=== PATIENT | male | born 1940 | race Caucasian/White ===

== ENCOUNTER 2017-01-02 04:03 | Inpatient (IN) | payer MEDICARE, BC ==
[~2017-01-02] VITALS: Ht 165.1 cm; Wt 65.2 kg
[2017-01-02] VITALS (13 sets, daily range): BP systolic 106–149; BP diastolic 60–87; PULSE 56–85; RESP 18; TEMP 97.1; Ht 165.1 cm; Wt 65.2 kg
[~2017-01-02 04:03] MED LIST: AMLO-218 PO; CALC667C4 PO; CITA-98 PO; LOSA25TA5 PO; METO50TA16 PO; NEPH PO; RANI150C11 PO; REPA2TAB6 PO; SITA50TA2 PO; SMV40T PO
[2017-01-02] MEDS ORDERED: ONDANSETRON 4 MG INJ IV STA (04:25)
[2017-01-02] MEDS ORDERED: FAMOTIDINE 20 MG INJ IV STA (04:25)
[2017-01-02 05:00] LABS: ADD SCAN DIFF NO
[2017-01-02 05:08] LABS: BASOPHILS % 0.3 % (0.0-2.0); EOSINOPHILS # 0.1 10^3/ul (0.0-0.5); EOSINOPHILS % 0.9 % (0.0-7.0); HEMATOCRIT 35.5 % (42.0-52.0); HEMOGLOBIN 11.4 g/dl (14.0-18.0); LYMPHOCYTES # 1.8 10^3/ul (0.8-2.9); LYMPHOCYTES % 15.1 % (15.0-51.0); MEAN CORPUSCULAR HEMOGLOBIN 30.6 pg (29.0-33.0); MEAN CORPUSCULAR HGB CONC 32.1 g/dl (32.0-37.0); MEAN CORPUSCULAR VOLUME 95.2 fl (82.0-101.0); MEAN PLATELET VOLUME 10.4 fl (7.4-10.4); MONOCYTE # 0.9 10^3/ul (0.3-0.9); MONOCYTES % 7.8 % (0.0-11.0); NEUTROPHILS % 75.3 % (39.0-77.0); PLATELET COUNT 210 10^3/UL (140-415); RED BLOOD COUNT 3.73 10^6/ul (4.70-6.10); RED CELL DISTRIBUTION WIDTH 15.8 % (11.5-14.5)
[2017-01-02 05:16] LABS: ALBUMIN 4.3 g/dl (3.3-4.9); ALBUMIN/GLOBULIN RATIO 1.16; CALCIUM 9.6 mg/dl (8.4-10.2); CREATININE 7.79 mg/dl (0.61-1.24); POTASSIUM 5.8 mmol/L (3.5-5.1)
[2017-01-02] MEDS ORDERED: CALCIUM GLUCONATE 10% 1 GM in SOD CHLORIDE 0.9% 100 ML IVPB ONE (06:00)
[2017-01-02] MEDS ORDERED: NA POLYST SULFON 15 GM/60 ML BTL PO ONE (06:00)
[2017-01-02] MEDS ORDERED: IODIXANOL LOCM 100 ML BTL ONE (06:06)
[2017-01-02] MEDS ORDERED: SOD CHLORIDE 0.9% 100 ML ONE (06:06)
[2017-01-02] MEDS ORDERED: ONDANSETRON 4 MG INJ IV PRN ×2 (06:30→10:00)
[2017-01-02] MEDS ORDERED: ACETAMINOPHEN 325 MG TAB PO PRN (06:30)
--- NOTE | 2017-01-02 06:56 | ERA ---
ER Documentation Chief Complaint Date/Time DATE: 01/02/17 TIME: 06:52 Chief Complaint N/V/D that started tonight HPI This is a 76-year-old male with a history of hypertension, diabetes, coronary artery disease and end-stage renal disease who is on dialysis Tuesday, Tuesday and Tuesday who presents to the emergency room for evaluation of nausea, vomiting , diarrhea and abdominal cramping which started approximately 4 hours prior to arrival ROS All systems reviewed and are negative except as per history of present illness. Medications Home Meds Active Scripts Metoprolol Succinate* (Toprol XL*) 50 Mg Tab.er.24h, 50 MG PO BID for 30 Days, # 60 5 Refills Prov:RADHA BAKER MD 09/15/16 Repaglinide* (Prandin*) 2 Mg Tablet, 2 MG PO AC MEALS for 30 Days, #90 TAB 5 Refills Prov:RADHA BAKER MD 09/15/16 Reported Medications Losartan Potassium* (Losartan Potassium*) 25 Mg Tablet, 25 MG PO BID, TAB 03/06/16 Calcium Acetate (Phoslo) 667 Mg Capsule, 667 MG PO TID, 0 Refills 08/07/10 Multivit/Ca Carb/B Cmplx/Fa* (Germania-Filomena*) 1 Tab Tab, 1 TAB PO DAILY, 0 Refills 08/07/10 Amlodipine Besylate* (Norvasc*) 10 Mg Tablet, 10 MG PO DAILY, 0 Refills 08/07/10 Simvastatin (Simvastatin) 40 Mg Tablet, 40 MG PO HS, 0 Refills 08/07/10 Citalopram Hydrobromide* (Celexa*) 20 Mg Tablet, 20 MG PO DAILY, 0 Refills 08/07/10 Ranitidine Hcl (Ranitidine Hcl) 150 Mg Capsule, 150 MG PO BID, 0 Refills 08/07/10 Sitagliptin* (Januvia*) 50 Mg Tablet, 25 MG PO DAILY, 0 Refills 04/06/10 Allergies Allergies: Coded Allergies: No Known Drug Allergy (Verified Allergy, Unknown, 03/06/16) PMhx/Soc History of Surgery: Yes ([facility] WEEKS) Anesthesia Reaction: No Hx Neurological Disorder: No Hx Respiratory Disorders: No Hx Cardiac Disorders: Yes (HTN, ID JUL 2016) Hx Psychiatric Problems: No Hx Miscellaneous Medical Probl: Yes (HTN, DM, retinopathy, PVD, BPH, ESRD) Hx Alcohol Use: Yes Hx Substance Use: No Hx Tobacco Use: No Smoking Status: Never smoker Physical Exam Vitals Vital Signs Date Time Temp Pulse Resp B/P Pulse Ox O2 Delivery O2 Flow Rate FiO2 01/02/17 04:20 97.1 56 18 153/72 100 Room Air 01/02/17 04:07 97.1 54 18 131/62 99 Physical Exam INITIAL VITAL SIGNS: Reviewed by me GENERAL: The patient is well developed and appropriate for usual state of health in no apparent distress HEENT: Pupils equal, round, and reactive to light. EOMI. There is no scleral icterus. NECK: C-spine is soft and supple, there is no meningismus. There is no cervical lymphadenopathy. LUNGS: Clear to auscultation bilaterally. There are no rales, wheezes or rhonchi. HEART: Regular rate and rhythm, no murmurs, clicks, rubs or gallops. ABDOMEN: Soft, non-tender, non-distended. There are bowel sounds in all four quadrants. No rebound or guarding. EXTREMITIES: Bilateral BKAs, there is no peripheral cyanosis or edema. No focal swelling or erythema. NEUROLOGICAL: The patient moves all four extremities with 5/5 strength. Cranial nerves II - XII are intact. Normal gait. Alert and oriented SKIN: There is no apparent rash or petechiae. HEME/LYMPHATIC: There is no evidence of excessive bruising or lymphedema. PSYCHIATRIC: The patient does not appear anxious or depressed. Result Diagram: 01/02/17 0430 01/02/17 0430 Results 24 hrs Laboratory Tests Test 01/02/17 04:30 01/02/17 05:59 White Blood Count 12.010^3/ul Red Blood Count 3.7310^6/ul Hemoglobin 11.4g/dl Hematocrit 35.5% Mean Corpuscular Volume 95.2fl Mean Corpuscular Hemoglobin 30.6pg Mean Corpuscular Hemoglobin Concent 32.1g/dl Red Cell Distribution Width 15.8% Platelet Count 41253^3/UL Mean Platelet Volume 10.4fl Neutrophils % 75.3% Lymphocytes % 15.1% Monocytes % 7.8% Eosinophils % 0.9% Basophils % 0.3% Nucleated Red Blood Cells % 0.0/100WBC Neutrophils # 9.010^3/ul Lymphocytes # 1.810^3/ul Monocytes # 0.910^3/ul Eosinophils # 0.110^3/ul Basophils # 0.010^3/ul Nucleated Red Blood Cells # 0.010^3/ul Sodium Level 138mmol/L Potassium Level 5.8mmol/L Chloride Level 104mmol/L Carbon Dioxide Level 22mmol/L Anion Gap 18 Blood Urea Nitrogen 56mg/dl Creatinine 7.79mg/dl Glucose Level 187mg/dl Calcium Level 9.6mg/dl Total Bilirubin 0.0mg/dl Direct Bilirubin 0.00mg/dl Indirect Bilirubin 0.0mg/dl Aspartate Amino Transf (AST/SGOT) 32IU/L Alanine Aminotransferase (ALT/SGPT) 27IU/L Alkaline Phosphatase 106IU/L Total Protein 8.0g/dl Albumin 4.3g/dl Globulin 3.70g/dl Albumin/Globulin Ratio 1.16 Lipase 2412U/L Lactic Acid Level 0.6mmol/L Troponin I 0.013ng/ml Current Medications Medications (Trade) Dose Ordered Sig/Rachel Route PRN Reason Start Time Stop Time Status Last Admin Dose Admin Ondansetron HCl (Zofran Inj) 4 mg ONCE STAT IV 01/02/17 04:25 01/02/17 04:27 DC 01/02/17 04:36 Famotidine 20 mg 20 mg ONCE STAT IV 01/02/17 04:25 01/02/17 04:27 DC 01/02/17 04:36 Calcium Gluconate/ Sodium Chloride (Ca Gluc/NS) 110 ml @ 110 mls/hr ONCE ONCE IVPB 01/02/17 06:00 01/02/17 06:59 DC 01/02/17 05:45 Sodium Polystyrene Sulfonate (Kayexalate) 30 gm ONCE ONCE PO 01/02/17 06:00 01/02/17 06:01 DC 01/02/17 05:45 IV Flush 10 ml 10 ml STK-MED ONCE .ROUTE 01/02/17 06:06 01/02/17 06:07 DC 01/02/17 06:55 Sodium Chloride (NS) 100 ml @ ud STK-MED ONCE .ROUTE 01/02/17 06:06 01/02/17 06:07 DC 01/02/17 06:55 Iodixanol (Visipaque Locm) 100 ml STK-MED ONCE .ROUTE 01/02/17 06:06 01/02/17 06:07 DC 01/02/17 06:55 Ondansetron HCl (Zofran Inj) 4 mg ER BRIDGE PRN IV NAUSEA AND/OR VOMITING 01/02/17 06:30 01/03/17 06:29 Acetaminophen (Tylenol Tab) 650 mg ER BRIDGE PRN PO MILD PAIN/FEVER 01/02/17 06:30 01/03/17 06:29 Procedures/MDM Chest X-ray 1V Interpreted by me: Soft Tissue: No acute abnormalities Bones: No acute abnormalities Mediastinum/Cardiac Silhouette/Lungs: [No acute abnormalities] EKG: Rate/Rhythm: [Normal Sinus Rhythm] QRS, ST, T-waves: [No changes consistent w/ acute ischemia] Impression: [No evidence of ischemia or arrhythmia] CT abdomen pelvis with IV contrast: Pending This 76-year-old male presents to the emergency room for evaluation of abdominal cramping, nausea, vomiting and diarrhea. When I evaluated this patient I did note that he was alert and oriented to person place and time, he was hemodynamically stable and in no respiratory distress. Lab work was obtained which does show an elevation in his lipase. His patient also has an elevation of his potassium at a level of 5.8. Patient was given calcium gluconate, Kayexalate in the emergency room. He has no EKG changes consistent with hyperkalemia. I have contacted his primary care physician, Dr. Graves who states this patient has multiple comorbidities and he agrees to the patient being admitted. He would like a CT of the abdomen and pelvis due to the fact that this patient has had a previous history of mesenteric ischemia. CT of abdomen pelvis is pending at this time. This patient is nontoxic-appearing and will be admitted to the telemetry floor after the results of the CAT are available. Departure Diagnosis: Primary Impression: Nausea and vomiting Additional Impressions: Acute pancreatitis Hyperkalemia Type 2 diabetes mellitus with diabetic chronic kidney disease Condition: MICHELLE Cristobal DO Jan 02, 2017 06:56
--- NOTE | 2017-01-02 07:26 | RADRPT ---
PROCEDURE: CT Abdomen and Pelvis with contrast. CLINICAL INDICATION: Abdominal pelvic pain. Vomiting and diarrhea. TECHNIQUE: CT scan of the abdomen and pelvis with contrast was performed on a multi-detector high- resolution CT scanner. The patient was scanned following the uncomplicated intravenous administrati on of 100 cc of Visipaque 320 IV contrast. Coronal and sagittal reformatted images were obtained fr om the axial source images. Images were reviewed on a high-resolution PACS workstation. The total ex am CTDI equals 10.40 mGy and the total exam DLP equals 673.17 mGy-cm. One or more of the following dose reduction techniques were used: - Automated exposure control. - Adjustment of the mA and/or kV according to patient size. - Use of iterative reconstruction technique. COMPARISON: CT scan chest dated 09/09/2016 FINDINGS: CT abdomen: The lung bases are markable for chronic scarring and fibrosis with underlying ground-glass opacifica tion, stable over time. Small basilar pleural effusion seen previously are now resolved. Pleural c alcifications are seen within the right lung base. The heart size is enlarged with a small pericard ial effusion. Abundant coronary artery atherosclerotic vascular calcifications are identified. The liver is normal in size and density without focal mass or intrahepatic biliary dilatation. The spleen is normal in size and homogeneous in density. The stomach is significantly distended and pari led with fluid and contrast and ingested material, but is otherwise grossly unremarkable. The pancr eas as visualized is normal. The gallbladder is surgically absent; the biliary tree is unremarkable and there is no evidence for biliary dilatation. The adrenal glands are symmetric and normal. The kidneys are symmetrically shrunken and atrophic consistent with renal insufficiency/failure. Tiny cysts are seen within the kidneys bilaterally. Query cystic renal disease of dialysis. No renal ca lculus or obstructive uropathy or mass lesion is seen. The aorta is of normal caliber. Aortic vascular calcifications are present. There is no retroperit henriquez lymphadenopathy. The maria esther hepatis region is clear. The bowel and mesentery, as visualized, are equally unremarkable. Most of the colon is collapsed and decompressed and grossly unremarkable. CT pelvis: The small bowel loops situated within the pelvis are unremarkable. The pelvic organs are remarkable for significant enlargement of the prostate gland which is impressing upon the base of the bladder. The pelvic sidewalls and inguinal regions are clear. The sigmoid colon and rectum are remarkable for subtle mild hyperemia of the sigmoid colon rectum, with perhaps minimal wall thickening. Signif icant pericolonic inflammatory changes or edema is not present. Appearances are nonspecific althoug h subtle early developing colitis is within the differential. No mass or adenopathy is seen. No asuncion e fluid is identified. No acute inflammation is seen. The bladder is collapsed and decompressed at the time of the study. Mild bladder wall thickening is seen, likely due to chronic bladder outlet obstruction. Extensive atherosclerotic vascular calcifications are seen within the pelvis. There is lack of enha ncement and presumed thrombosis of the left proximal femoral artery. Beyond this region, there is a thin tiny string of enhancement of the mid left femoral artery, likely related to significant ather osclerotic plaque and narrowing as well. Postsurgical changes with surgical clips are seen within t he groin regions adjacent to the common femoral arteries bilaterally. The surrounding osseous structures are remarkable for mild multilevel degenerative spondylosis of th e spine. Moderate compression fracture with dense sclerosis is seen involving the L1 vertebral body , stable over time. This is not significantly changed in size or appearance when compared to the pr ior CT scan. No osteolytic or osteoblastic lesion is detected. IMPRESSION: 1. Subtle mild hyperemia of the wall of the lower colon and rectum, with perhaps minimal wall thick ening. However this is not associated with surrounding pericolonic inflammatory changes. Subtle mi ld colitis could have this appearance. 2. Shrunken atrophic [place] kidneys with multiple small cysts. Renal failure with chronic cystic r enal disease of dialysis could have this appearance. 3. Severe, extensive, abundant atherosclerotic vascular calcifications throughout all of the vascul ature of the visualized abdomen and pelvis. Again vascular calcifications related to chronic renal f ailure renal dialysis could have this appearance. 4. Apparent focal thrombosis with lack of enhancement involving the left proximal femoral artery, w ith only a thin string of enhancement of the mid left femoral artery. 5. Enlarged prostate gland. Correlate PSA level. 6. Dense sclerosis with moderate compression fracture of the L1 vertebral body, stable in appearanc e when compared to the prior study. 7. Fibrosis with pleural calcifications and patchy ground-glass calcification within the lung bases bilaterally, stable over time when compared to the prior study. 8. Marked cardiomegaly with small circumferential pericardial effusion, and abundant coronary arter y atherosclerotic vascular calcifications. RPTAT: HMJB .Jeremy Cole MD, MD Date Time Electronically viewed and signed by .Jeremy Cole MD, MD on 01/02/2017 07:25 .B/
--- NOTE | 2017-01-02 07:35 | RADRPT ---
PROCEDURE: XR Chest. CLINICAL INDICATION: Nausea, vomiting, and weakness TECHNIQUE: Portable single view of the chest COMPARISON: 09/13/2016 FINDINGS: Cardiomegaly and right dialysis catheter remain in place. Reduced lung volumes with mild interstiti al prominence, unchanged. IMPRESSION: No significant interval change. RPTAT: HLBE Edwina Zambrano Physician Date Time Electronically viewed and signed by Edwina Zambrano, Physician on 01/02/2017 07:35 LE/
[2017-01-02] MEDS ORDERED: morphine 2 MG INJ IV PRN (10:00)
[2017-01-02] MEDS ORDERED: NACL 0.9% 3 ML SYG IV SCH (10:00)
[2017-01-02] MEDS ORDERED: GLUCOSE GEL 15 GRAM TUBE PO PRN ×2 (10:00)
[2017-01-02] MEDS ORDERED: GLUCOSE GEL 15 GRAM TUBE BUCCAL PRN (10:00)
[2017-01-02] MEDS ORDERED: DEXTROSE 50% 50 ML SYRINGE IV PRN ×2 (10:00)
[2017-01-02] MEDS ORDERED: GLUCAGON 1 MG INJ IM PRN (10:00)
[2017-01-02] MEDS: HEPARIN 5,000 UNIT/0.5 ML VIAL SC SCH ×2 (10:07→21:14)
[2017-01-02] MEDS: INSULIN ASPART [NOVOLOG] 3 ML PEN SC SCH ×3 (12:46→21:00)
--- NOTE | 2017-01-02 14:17 | HP ---
Date/Time of Note Date/Time of Note DATE: 01/02/17 TIME: 14:06 Assessment/Plan VTE Prophylaxis VTE Prophylaxis Intervention: heparin Assessment/Plan Problems: (1) Type 2 diabetes mellitus with diabetic chronic kidney disease Status: Chronic Comment: Monitor BG and give ISS. No other treatment as pt. NPO for now (2) End stage kidney disease Status: Chronic Comment: Call nephrology and plan HD tomorrow (3) Hyperkalemia Status: Acute Comment: HD tomorrow (4) Essential (primary) hypertension Status: Chronic Comment: Monitor BP b/c BP meds on hold (5) Hyperlipidemia Status: Chronic Comment: Hold statin while NPO (6) BPH (benign prostatic hypertrophy) with urinary retention Status: Chronic Comment: Hold prostate meds while NPO (7) Major depressive disorder, recurrent, in full remission Status: Chronic Comment: Hold SSRI while NPO (8) Acute pancreatitis Status: Acute Comment: Maintain NPO. No IVF b/c of ESRD. Pt. now asymptomatic. Recheck lipase tomorrow. Check other parameters. No obvious etiology; no EtOH, no gallstones. Possible hypertriglyceridemia. Will check lipids but if this is negative and pancreatitis resolves spontaneously, may not be important to determine etiology. (9) Nausea and vomiting Status: Resolved HPI/ROS Admit Date/Time Admit Date/Time Jan 02, 2017 at 06:09 Hx of Present Illness 76 y/o H M w/ multiple medical problems including T2DM, w/ diabetic nephropathy , neuropathy, retinopathy, HTN, hyperlipidemia, ESRD, PVD, w/ B BKA, BPH, depression, an episode of ischemic bowel, s/p PNA 4 months ago, in H until yesterday when he ate 2 tostadas. Subsequently became ill. He developed diarrhea. This was followed by 2 episodes of emesis which was accompanied by mid-abd. pain and acute anorexia. brought pt. to ER. In ER pt. found to have lipase of 2,412. Of note pt. denies any alcohol intake and has had cholecystectomy in distant past. ROS Constitutional: improved, no complaints Eyes: no complaints ENT: no complaints Respiratory: no complaints Cardiovascular: no complaints Gastrointestinal: decreased appetite (resolved), diarrhea (resolved), nausea ( resolved), pain (resolved), vomiting (resolved) Genitourinary: no complaints Musculoskeletal: no complaints Neurologic: no complaints PMH/Family/Social Past Medical History Medical History: diabetes, high cholesterol, hypertension, renal disease, other (PVD, BPH, ischemic bowel, depression, pneumonia) Past Surgical History Past Surgical Hx: other (knee surgery, bypass grafting RLE, multiple debridments, BKA RLE, AV fistula placement, LLE revasc, AV fistula balloon angioplasty x 2, BG LLE, TMTA LLE, subsequent debridement again, LLE BKA, s/p AVF revision) Family History Significant Family History: heart disease (sister), cancer (ather, mother, 2 sisters), diabetes (sister) Social History bLaureano Huff, 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, , 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, 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 Alcohol Use: sober (x 40 y.) Smoking Status: Former smoker (1 ppd x 10 y) Drug Use: none Exam/Review of Systems Vital Signs Vitals VS - Last 72 Hours, by Label Date Time Temp Pulse Resp B/P Pulse Ox O2 Delivery O2 Flow Rate FiO2 01/02/17 12:24 56 01/02/17 11:30 56 18 142/70 99 Room Air 01/02/17 10:38 51 16 138/69 100 01/02/17 07:30 61 18 145/52 100 Room Air 01/02/17 04:20 97.1 56 18 153/72 100 Room Air 01/02/17 04:07 97.1 54 18 131/62 99 Vital Signs Date Time Temp Pulse Resp B/P Pulse Ox O2 Delivery O2 Flow Rate FiO2 01/02/17 12:24 56 01/02/17 11:30 18 142/70 99 Room Air 01/02/17 04:20 97.1 Exam Constitutional: alert, oriented, well developed Psych: nl mood/affect, no complaints Eyes: EOMI, PERRL, nl conjunctiva, nl lids, nl sclera ENMT: mucosa pink and moist, nl external ears & nose Neck: non-tender, supple, No bruits, No masses, No thyromegaly Respiratory: clear to auscultation, normal air movement Cardiovascular: regular rate and rhythm, No edema, No murmurs/extra sounds, No rub Gastrointestinal: bowel sounds, nl liver, spleen, non-tender, soft, No mass, No rebound or guarding Musculoskeletal: No nl extremities to inspection (B BKA) Extremities: No clubbing, No cyanosis, No edema Neurological: [employer] SAL[employer] II-XII intact, nl mental status, nl speech, nl strength Additional Comments Bedside Glucose - 72 Hours Test 01/02/17 12:41 Bedside Glucose 126mg/dL (70-220) Labs Result Diagram: 01/02/17 04301/02/17 043 Medications Medications Current Medications Ondansetron HCl (Zofran Inj) 4 mg Q6H PRN IV NAUSEA AND/OR VOMITING; Start at 10:00 Morphine Sulfate (morphine) 2 mg Q4H PRN IV PAIN; Start 01/02/17 at 10:00 Heparin Sodium (Porcine) (Heparin (5000 Units/0.5 ml)) 5,000 unit Q12 SC Last administered on 01/02/17t 10:07; Admin Dose 5,000 UNIT; Start 01/02/17 at 10:00 Insulin Aspart (Novolog Insulin Pen) NOVOLOG *MILD* ALGORI... Q4 SC ; Start at 13:00 Miscellaneous Information 1 ea NOTE XX ; Start 01/02/17 at 10:00 Glucose (Glutose) 15 gm Q15M PRN PO DECREASED GLUCOSE; Start 01/02/17 at 10:00 Glucose (Glutose) 22.5 gm Q15M PRN PO DECREASED GLUCOSE; Start 01/02/17 at 10: 00 Dextrose (D50w Syringe) 25 ml Q15M PRN IV DECREASED GLUCOSE; Start 01/02/17 at 10:00 Dextrose (D50w Syringe) 50 ml Q15M PRN IV DECREASED GLUCOSE; Start 01/02/17 at 10:00 Glucagon (Glucagen) 1 mg Q15M PRN IM DECREASED GLUCOSE; Start 01/02/17 at 10:00 Glucose (Glutose) 15 gm Q15M PRN BUCCAL DECREASED GLUCOSE; Start 01/02/17 at 10 :00 RADHA BAKER MD Jan 02, 2017 14:17
[2017-01-02] MEDS ORDERED: SOD CHLORIDE 0.9% 1,000 ML IV PRN (18:21)
[2017-01-02] MEDS ORDERED: HEPARIN 1000 UNITS/ML 10 ML INJ CATHETER SCH (18:30)
[2017-01-03] VITALS (12 sets, daily range): BP systolic 145–186; BP diastolic 57–86; PULSE 71–88; RESP 17–21
[2017-01-03] MEDS: INSULIN ASPART [NOVOLOG] 3 ML PEN SC SCH ×5 (01:41→17:47)
[2017-01-03 07:37] LABS: ADD SCAN DIFF NO
[2017-01-03 07:43] LABS: BASOPHILS % 0.2 % (0.0-2.0); HEMATOCRIT 30.1 % (42.0-52.0); HEMOGLOBIN 9.7 g/dl (14.0-18.0); LYMPHOCYTES % 9.6 % (15.0-51.0); MEAN CORPUSCULAR HEMOGLOBIN 30.4 pg (29.0-33.0); MEAN CORPUSCULAR HGB CONC 32.2 g/dl (32.0-37.0); MEAN CORPUSCULAR VOLUME 94.4 fl (82.0-101.0); MEAN PLATELET VOLUME 10.7 fl (7.4-10.4); MONOCYTES % 10.3 % (0.0-11.0); NEUTROPHIL # 7.9 10^3/ul (1.6-7.5); NEUTROPHILS % 79.4 % (39.0-77.0); PLATELET COUNT 162 10^3/UL (140-415); RED BLOOD COUNT 3.19 10^6/ul (4.70-6.10); RED CELL DISTRIBUTION WIDTH 15.9 % (11.5-14.5); WHITE BLOOD COUNT 9.9 10^3/ul (4.8-10.8)
[2017-01-03 08:04] LABS: ALBUMIN 3.4 g/dl (3.3-4.9); ALBUMIN/GLOBULIN RATIO 1.06; CALCIUM 8.9 mg/dl (8.4-10.2); CHOL/HDL RATIO 1.9 RATIO; CREATININE 6.05 mg/dl (0.61-1.24); MAGNESIUM 2.1 mg/dl (1.7-2.5); PHOSPHORUS 5.4 mg/dl (2.5-4.9); POTASSIUM 3.2 mmol/L (3.5-5.1); TOTAL PROTEIN 6.6 g/dl (6.1-8.1)
[2017-01-03] MEDS: HEPARIN 5,000 UNIT/0.5 ML VIAL SC SCH ×2 (09:10→20:59)
[2017-01-03 10:13] LABS: AMYLASE 135 U/L (11-123)
--- NOTE | 2017-01-03 12:39 | CONS ---
Date/Time of Note Date/Time of Note DATE: 01/03/17 TIME: 12:20 Assessment/Plan Assessment/Plan Chief Complaint/Hosp Course Since hospitalization his abdominal symptoms have abated. No abdominal pain, N/ V at this time. He underwent HD late last night for K+ 5.8. This morning K+ is 3.2 He feels much better. Repeat lipase this morning is 288 and amylase is 135. Problems: Additional Assessment/Plan 1 Hyperkalemia now resolved 2 Acute pancreatitis resolving 3 AODM controlled 4 Hypertension controlled 5 Bilateral Amputation LE 6 ESRD 7 Anaemia of ESRD Plan: Acute HD tomorrow morning Further plans including DC per PMD Consultation Date/Type/Reason Admit Date/Time Jan 02, 2017 at 06:09 Date of Consultation: Jan 03, 2017 Type of Consultation: Nephrology Reason for Consultation Hyperkalemia Thank selam for requesting me to see Mr Nakul Frias, ESRD patient on out patient HD at [facility] every Tuesday. Apparently he awoke on Tuesday C/O abdominal pain,nausea and vomitting, for which he was brought to ER by family members. He did not have HD on Tuesday and so in ER was noted to have K+ 5.8. Lipase was markedly elevated @ 2413. W/U otherwse nagative. No h/o alcohol intake or prior abuse. No prior h/o pancreatitis. Eyes: no complaints ENT: no complaints Respiratory: no complaints Cardiovascular: no complaints Gastrointestinal: decreased appetite (resolved), diarrhea (resolved), nausea ( resolved), pain (resolved), vomiting (resolved) Genitourinary: no complaints Musculoskeletal: no complaints Neurologic: no complaints Psychological: nl mood/affect, no complaints Past Medical History Medical History: diabetes, high cholesterol, hypertension, renal disease, other (PVD, BPH, ischemic bowel, depression, pneumonia) Past Surgical History Past Surgical Hx: other (knee surgery, bypass grafting RLE, multiple debridments, BKA RLE, AV fistula placement, LLE revasc, AV fistula balloon angioplasty x 2, BG LLE, TMTA LLE, subsequent debridement again, LLE BKA, s/p AVF revision) Family History Significant Family History: no pertinent family hx Social History Alcohol Use: sober (x 40 y.) Smoking Status: Former smoker (1 ppd x 10 y) Drug Use: none Exam/Review of Systems Vital Signs Vitals Vital Signs Date Time Temp Pulse Resp B/P Pulse Ox O2 Delivery O2 Flow Rate FiO2 01/03/17 12:02 76 01/03/17 11:49 99.3 20 184/86 96 01/02/17 11:30 Room Air Intake and Output 01/02/17 01/02/17 01/03/17 15:00 23:00 07:00 Intake Total 500 ml Output Total 2500 ml Balance -2000 ml Results Result Diagram: 01/03/17 0645 01/03/17 0645 Results 24 hrs Laboratory Tests Test 01/02/17 12:41 01/02/17 16:54 01/02/17 21:10 01/03/17 01:37 Bedside Glucose 126 107 152 181 Test 01/03/17 05:08 01/03/17 06:45 01/03/17 09:05 Bedside Glucose 147 175 White Blood Count 9.9 Red Blood Count 3.19 L Hemoglobin 9.7 L Hematocrit 30.1 L Mean Corpuscular Volume 94.4 Mean Corpuscular Hemoglobin 30.4 Mean Corpuscular Hemoglobin Concent 32.2 Red Cell Distribution Width 15.9 H Platelet Count 162 # Mean Platelet Volume 10.7 H Neutrophils % 79.4 H Lymphocytes % 9.6 L Monocytes % 10.3 Eosinophils % 0.0 Basophils % 0.2 Nucleated Red Blood Cells % 0.0 Neutrophils # 7.9 H Lymphocytes # 1.0 Monocytes # 1.0 H Eosinophils # 0.0 Basophils # 0.0 Nucleated Red Blood Cells # 0.0 Sodium Level 145 H Potassium Level 3.2 #L Chloride Level 111 H Carbon Dioxide Level 22 Anion Gap 15 Blood Urea Nitrogen 33 #H Creatinine 6.05 H Glucose Level 154 Hemoglobin A1c 5.4 Calcium Level 8.9 Phosphorus Level 5.4 H Magnesium Level 2.1 Total Bilirubin 0.0 L Direct Bilirubin 0.00 Indirect Bilirubin 0.0 Aspartate Amino Transf (AST/SGOT) 33 Alanine Aminotransferase (ALT/SGPT) 36 Alkaline Phosphatase 82 Total Protein 6.6 # Albumin 3.4 Globulin 3.20 Albumin/Globulin Ratio 1.06 Triglycerides Level 51 Cholesterol Level 150 LDL Cholesterol, Calculated 62 HDL Cholesterol 78 H Cholesterol/HDL Ratio 1.9 Amylase Level 135 H Lipase 288 Medications Medications Current Medications Ondansetron HCl (Zofran Inj) 4 mg Q6H PRN IV NAUSEA AND/OR VOMITING; Start at 10:00 Morphine Sulfate (morphine) 2 mg Q4H PRN IV PAIN; Start 01/02/17 at 10:00 Heparin Sodium (Porcine) (Heparin (5000 Units/0.5 ml)) 5,000 unit Q12 SC Last administered on 01/03/17 09:10; Admin Dose 5,000 UNIT; Start 01/02/17 at 10:00 Insulin Aspart (Novolog Insulin Pen) NOVOLOG *MILD* ALGORI... Q4 SC Last administered on 01/03/17 09:44; Admin Dose 1 UNIT; Start 01/02/17 at 13:00 Miscellaneous Information 1 ea NOTE XX ; Start 01/02/17 at 10:00 Glucose (Glutose) 15 gm Q15M PRN PO DECREASED GLUCOSE; Start 01/02/17 at 10:00 Glucose (Glutose) 22.5 gm Q15M PRN PO DECREASED GLUCOSE; Start 01/02/17 at 10: 00 Dextrose (D50w Syringe) 25 ml Q15M PRN IV DECREASED GLUCOSE; Start 01/02/17 at 10:00 Dextrose (D50w Syringe) 50 ml Q15M PRN IV DECREASED GLUCOSE; Start 01/02/17 at 10:00 Glucagon (Glucagen) 1 mg Q15M PRN IM DECREASED GLUCOSE; Start 01/02/17 at 10:00 Glucose 15 gm 15 gm Q15M PRN BUCCAL DECREASED GLUCOSE; Start 01/02/17 at 10:00 Sodium Chloride (NS) 1,000 ml @ 0 mls/hr Q0M PRN IV TO KEEP SBP ABOVE 90; Start 01/02/17 at 18:21 ANALY EVANS MD Jan 03, 2017 12:32
--- NOTE | 2017-01-03 18:55 | PN ---
Date/Time of Note Date/Time of Note DATE: 01/03/17 TIME: 18:48 Assessment/Plan VTE Prophylaxis VTE Prophylaxis Intervention: heparin Lines/Catheters IV Catheter Type [facility]from [facility]): [facility] Urinary Cath still in place: No Assessment/Plan Problems: (1) Acute pancreatitis Status: Resolved Comment: No obvious etiology but completely resolved. Possibly passed gallstone despite lack of gall bladder. Feed pt. and if tolerates diet, plan d/ c tomorrow after HD Qualifiers: Pancreatitis type: idiopathic (2) Hyperkalemia Status: Resolved (3) End stage kidney disease Status: Chronic Comment: HD tomorrow (4) Type 2 diabetes mellitus with diabetic chronic kidney disease Status: Chronic Comment: Fair control. Resume linagliptin and repaglinide and monitor BG Qualifiers: Chronic kidney disease stage: on chronic dialysis (5) Essential (primary) hypertension Status: Chronic Comment: Resume antihypertensives (6) Hyperlipidemia Status: Chronic Comment: Resume statin (7) Major depressive disorder, recurrent, in full remission Status: Chronic Comment: Resume citalopram Cont'd Hospitalization Reason: Likely d/c tomorrow after HD if tolerates diet Subjective 24 Hr Interval Summary Constitutional: improved, no complaints Respiratory: no complaints Cardiovascular: no complaints Gastrointestinal: no complaints, No decreased appetite, No diarrhea, No nausea, No pain, No vomiting Genitourinary: no complaints Musculoskeletal: no complaints Neurologic: no complaints Exam/Review of Systems Vital Signs Vitals VS - Last 72 Hours, by Label Date Time Temp Pulse Resp B/P Pulse Ox O2 Delivery O2 Flow Rate FiO2 01/03/17 16:02 71 01/03/17 15:41 99.3 74 20 186/85 94 01/03/17 12:02 76 01/03/17 11:49 99.3 79 20 184/86 96 01/03/17 08:00 83 01/03/17 07:31 99.2 83 20 164/70 93 01/03/17 04:23 97.8 83 17 149/57 97 01/03/17 04:12 88 01/03/17 00:30 98.2 68 17 145/65 99 01/03/17 00:09 84 01/02/17 23:30 85 01/02/17 23:30 85 17 01/02/17 23:00 80 01/02/17 22:30 76 01/02/17 22:00 74 01/02/17 21:30 78 01/02/17 21:00 79 01/02/17 20:30 79 79 01/02/17 20:30 80 01/02/17 20:07 63 01/02/17 20:00 98.6 68 18 145/65 99 01/02/17 16:06 98.0 60 18 124/60 100 01/02/17 16:05 57 01/02/17 12:24 56 01/02/17 11:30 56 18 142/70 99 Room Air 01/02/17 10:38 51 16 138/69 100 01/02/17 07:30 61 18 145/52 100 Room Air 01/02/17 04:20 97.1 56 18 153/72 100 Room Air 01/02/17 04:07 97.1 54 18 131/62 99 Vital Signs Date Time Temp Pulse Resp B/P Pulse Ox O2 Delivery O2 Flow Rate FiO2 01/03/17 16:02 71 01/03/17 15:41 99.3 20 186/85 94 01/02/17 11:30 Room Air Intake and Output 01/02/17 01/02/17 01/03/17 15:00 23:00 07:00 Intake Total 500 ml Output Total 2500 ml Balance -2000 ml Exam Constitutional: alert, oriented, well developed Psych: nl mood/affect, no complaints Respiratory: clear to auscultation, normal air movement Cardiovascular: regular rate and rhythm, No edema, No murmurs/extra sounds, No rub Gastrointestinal: bowel sounds, nl liver, spleen, non-tender, soft, No mass, No rebound or guarding Musculoskeletal: No nl extremities to inspection (B BKA) Extremities: No clubbing, No cyanosis, No edema Neurological: [employer]INT [employer] II-XII intact, nl mental status, nl speech, nl strength Additional Comments Bedside Glucose - 72 Hours Test 01/02/17 12:41 01/02/17 16:54 01/02/17 21:10 01/03/17 01:37 Bedside Glucose 126mg/dL (70-220) 107mg/dL (70-220) 152mg/dL (70-220) 181mg/dL (70-220) Test 01/03/17 05:08 01/03/17 09:05 01/03/17 13:16 01/03/17 17:16 Bedside Glucose 147mg/dL (70-220) 175mg/dL (70-220) 148mg/dL (70-220) 158mg/dL (70-220) Results Result Diagram: 01/03/17 0645 01/03/17 0645 Results 24 hrs Laboratory Tests Test 01/02/17 21:10 01/03/17 01:37 01/03/17 05:08 01/03/17 06:45 Bedside Glucose 152 181 147 White Blood Count 9.9 Red Blood Count 3.19 L Hemoglobin 9.7 L Hematocrit 30.1 L Mean Corpuscular Volume 94.4 Mean Corpuscular Hemoglobin 30.4 Mean Corpuscular Hemoglobin Concent 32.2 Red Cell Distribution Width 15.9 H Platelet Count 162 # Mean Platelet Volume 10.7 H Neutrophils % 79.4 H Lymphocytes % 9.6 L Monocytes % 10.3 Eosinophils % 0.0 Basophils % 0.2 Nucleated Red Blood Cells % 0.0 Neutrophils # 7.9 H Lymphocytes # 1.0 Monocytes # 1.0 H Eosinophils # 0.0 Basophils # 0.0 Nucleated Red Blood Cells # 0.0 Sodium Level 145 H Potassium Level 3.2 #L Chloride Level 111 H Carbon Dioxide Level 22 Anion Gap 15 Blood Urea Nitrogen 33 #H Creatinine 6.05 H Glucose Level 154 Hemoglobin A1c 5.4 Calcium Level 8.9 Phosphorus Level 5.4 H Magnesium Level 2.1 Total Bilirubin 0.0 L Direct Bilirubin 0.00 Indirect Bilirubin 0.0 Aspartate Amino Transf (AST/SGOT) 33 Alanine Aminotransferase (ALT/SGPT) 36 Alkaline Phosphatase 82 Total Protein 6.6 # Albumin 3.4 Globulin 3.20 Albumin/Globulin Ratio 1.06 Triglycerides Level 51 Cholesterol Level 150 LDL Cholesterol, Calculated 62 HDL Cholesterol 78 H Cholesterol/HDL Ratio 1.9 Amylase Level 135 H Lipase 288 Test 01/03/17 09:05 01/03/17 13:16 01/03/17 17:16 Bedside Glucose 175 148 158 Medications Medications Current Medications Ondansetron HCl (Zofran Inj) 4 mg Q6H PRN IV NAUSEA AND/OR VOMITING; Start at 10:00 Morphine Sulfate (morphine) 2 mg Q4H PRN IV PAIN; Start 01/02/17 at 10:00 Heparin Sodium (Porcine) (Heparin (5000 Units/0.5 ml)) 5,000 unit Q12 SC Last administered on 01/03/17 09:10; Admin Dose 5,000 UNIT; Start 01/02/17 at 10:00 Insulin Aspart (Novolog Insulin Pen) NOVOLOG *MILD* ALGORI... Q4 SC Last administered on 01/03/17 17:47; Admin Dose 1 UNIT; Start 01/02/17 at 13:00 Miscellaneous Information 1 ea NOTE XX ; Start 01/02/17 at 10:00 Glucose (Glutose) 15 gm Q15M PRN PO DECREASED GLUCOSE; Start 01/02/17 at 10:00 Glucose (Glutose) 22.5 gm Q15M PRN PO DECREASED GLUCOSE; Start 01/02/17 at 10: 00 Dextrose (D50w Syringe) 25 ml Q15M PRN IV DECREASED GLUCOSE; Start 01/02/17 at 10:00 Dextrose (D50w Syringe) 50 ml Q15M PRN IV DECREASED GLUCOSE; Start 01/02/17 at 10:00 Glucagon (Glucagen) 1 mg Q15M PRN IM DECREASED GLUCOSE; Start 01/02/17 at 10:00 Glucose 15 gm 15 gm Q15M PRN BUCCAL DECREASED GLUCOSE; Start 01/02/17 at 10:00 Sodium Chloride (NS) 1,000 ml @ 0 mls/hr Q0M PRN IV TO KEEP SBP ABOVE 90; Start 01/02/17 at 18:21 RADHA BAKER MD Jan 03, 2017 18:55
[2017-01-03] MEDS: Insulin NOVOLOG SS MILD Algorithm (SS with meals and bedtime) SC SCH (20:56)
[2017-01-03] MEDS: CALCIUM ACETATE 667 MG CAP PO SCH (20:56)
[2017-01-03] MEDS: RANITIDINE 150 MG TAB PO SCH (20:57)
[2017-01-03] MEDS: LOSARTAN 25 MG TAB PO SCH (20:58)
[2017-01-03] MEDS ORDERED: INSULIN ASPART [NOVOLOG] 3 ML PEN SC SCH (21:00)
[2017-01-03] MEDS ORDERED: ATORVASTATIN 40 MG TAB PO SCH (21:00)
[2017-01-03] MEDS: METOPROLOL (XL) 50 MG TAB PO SCH (21:01)
[2017-01-04] VITALS (11 sets, daily range): BP systolic 94–189; BP diastolic 51–88; PULSE 62–69; RESP 19–20
[2017-01-04] MEDS ORDERED: ACCUCHECK AT 2AM (Patients on SS coverage) XX SCH (02:00)
[2017-01-04 05:43] LABS: ADD SCAN DIFF NO
[2017-01-04 06:15] LABS: ALBUMIN 3.4 g/dl (3.3-4.9)
[2017-01-04 06:16] LABS: POTASSIUM 3.4 mmol/L (3.5-5.1)
[2017-01-04 06:18] LABS: ALBUMIN/GLOBULIN RATIO 1.03; CREATININE 8.77 mg/dl (0.61-1.24); TOTAL PROTEIN 6.7 g/dl (6.1-8.1)
[2017-01-04 06:19] LABS: CALCIUM 9.4 mg/dl (8.4-10.2)
[2017-01-04 06:29] LABS: BASOPHILS % 0.3 % (0.0-2.0); EOSINOPHILS % 0.3 % (0.0-7.0); HEMATOCRIT 28.7 % (42.0-52.0); HEMOGLOBIN 9.4 g/dl (14.0-18.0); LYMPHOCYTES # 1.4 10^3/ul (0.8-2.9); LYMPHOCYTES % 18.4 % (15.0-51.0); MEAN CORPUSCULAR HGB CONC 32.8 g/dl (32.0-37.0); MEAN CORPUSCULAR VOLUME 94.7 fl (82.0-101.0); MONOCYTES % 13.1 % (0.0-11.0); NEUTROPHILS % 67.5 % (39.0-77.0); PLATELET COUNT 158 10^3/UL (140-415); RED BLOOD COUNT 3.03 10^6/ul (4.70-6.10); RED CELL DISTRIBUTION WIDTH 16.1 % (11.5-14.5); WHITE BLOOD COUNT 7.4 10^3/ul (4.8-10.8)
[2017-01-04] MEDS ORDERED: MULTIVIT/CA CARB/B CMPLX/FA TAB PO SCH (09:00)
[2017-01-04] MEDS ORDERED: LINAGLIPTIN 5 MG TABLET PO SCH (09:00)
[2017-01-04] MEDS ORDERED: AMLODIPINE 10 MG TAB PO SCH (09:00)
[2017-01-04] MEDS ORDERED: CITALOPRAM 20 MG TAB PO SCH (09:00)
[2017-01-04] MEDS: Insulin NOVOLOG SS MILD Algorithm (SS with meals and bedtime) SC SCH ×3 (09:27→17:35)
[2017-01-04] MEDS: HEPARIN 5,000 UNIT/0.5 ML VIAL SC SCH (09:27)
[2017-01-04] MEDS: METOPROLOL (XL) 50 MG TAB PO SCH (09:29)
[2017-01-04] MEDS: CALCIUM ACETATE 667 MG CAP PO SCH ×2 (09:29→12:51)
[2017-01-04] MEDS: RANITIDINE 150 MG TAB PO SCH (09:29)
[2017-01-04] MEDS: REPAGLINIDE 2 MG TAB PO SCH ×3 (09:29→18:13)
[2017-01-04] MEDS: LOSARTAN 25 MG TAB PO SCH (09:30)
--- NOTE | 2017-01-04 09:52 | PDOCDIS ---
Discharge Instructions CONDITION Patient Condition: Fair HOME CARE INSTRUCTIONS: Special Diet: Renal 1800 ADA ACTIVITY: Activity Restrictions: No Restrictions Bathing Restrictions: Tub Bath FOLLOW UP/APPOINTMENTS Appointments make new emmetttLaureano garza/ Dr. Dorado for 3 months fasting RADHA DORADO MD Jan 04, 2017 09:52
--- NOTE | 2017-01-04 16:57 | CONS ---
Date/Time of Note Date/Time of Note DATE: 01/04/17 TIME: 16:51 Assessment/Plan Assessment/Plan Chief Complaint/Hosp Course Since hospitalization his abdominal symptoms have abated. No abdominal pain, N/ V at this time. He underwent HD late last night for K+ 5.8. This morning K+ is 3.2 He feels much better. Repeat lipase this morning is 288 and amylase is 135. Problems: Additional Assessment/Plan 1 S/P Acute pancreatitis resolved 2 ESRD 3 Anemia of CKD 4 Hypertension controlled 5 Bilateral BKA Plan; DC home F/U Out patient HD @ [facility] on Tuesday Consultation Date/Type/Reason Admit Date/Time Jan 02, 2017 at 06:09 Initial Consult Date 01/03/17 Type of Consultation: Nephrology 24 HR Interval Summary Free Text/Dictation Patient seen post HD. Overall feels much better. Appetite good,ate without any abdominal pain. Exam/Review of Systems Vital Signs Vitals Vital Signs Date Time Temp Pulse Resp B/P Pulse Ox O2 Delivery O2 Flow Rate FiO2 01/04/17 15:30 62 01/04/17 13:30 18 01/04/17 07:37 98.5 156/72 99 01/04/17 04:30 Room Air Intake and Output 01/03/17 01/03/17 01/04/17 14:59 22:59 06:59 Intake Total 100 ml Balance 100 ml Results Result Diagram: 01/04/17 0500 01/04/17 0500 Results 24 hrs Laboratory Tests Test 01/03/17 17:16 01/03/17 20:21 01/04/17 05:00 01/04/17 09:13 Bedside Glucose 158 179 181 White Blood Count 7.4 # Red Blood Count 3.03 L Hemoglobin 9.4 L Hematocrit 28.7 L Mean Corpuscular Volume 94.7 Mean Corpuscular Hemoglobin 31.0 Mean Corpuscular Hemoglobin Concent 32.8 Red Cell Distribution Width 16.1 H Platelet Count 158 Mean Platelet Volume 11.0 H Neutrophils % 67.5 Lymphocytes % 18.4 Monocytes % 13.1 H Eosinophils % 0.3 Basophils % 0.3 Nucleated Red Blood Cells % 0.0 Neutrophils # 5.0 Lymphocytes # 1.4 Monocytes # 1.0 H Eosinophils # 0.0 Basophils # 0.0 Nucleated Red Blood Cells # 0.0 Sodium Level 144 Potassium Level 3.4 L Chloride Level 105 Carbon Dioxide Level 21 Anion Gap 21 H Blood Urea Nitrogen 52 H Creatinine 8.77 #H Glucose Level 137 Calcium Level 9.4 Total Bilirubin 0.0 L Direct Bilirubin 0.00 Indirect Bilirubin 0.0 Aspartate Amino Transf (AST/SGOT) 35 Alanine Aminotransferase (ALT/SGPT) 31 Alkaline Phosphatase 81 Total Protein 6.7 Albumin 3.4 Globulin 3.30 H Albumin/Globulin Ratio 1.03 Amylase Level 111 Lipase 141 Test 01/04/17 12:42 Bedside Glucose 99 Medications Medications Current Medications Ondansetron HCl (Zofran Inj) 4 mg Q6H PRN IV NAUSEA AND/OR VOMITING; Start at 10:00 Morphine Sulfate (morphine) 2 mg Q4H PRN IV PAIN; Start 01/02/17 at 10:00 Heparin Sodium (Porcine) (Heparin (5000 Units/0.5 ml)) 5,000 unit Q12 SC Last administered on 01/04/17 09:27; Admin Dose 5,000 UNIT; Start 01/02/17 at 10:00 Miscellaneous Information 1 ea NOTE XX ; Start 01/02/17 at 10:00 Glucose (Glutose) 15 gm Q15M PRN PO DECREASED GLUCOSE; Start 01/02/17 at 10:00 Glucose (Glutose) 22.5 gm Q15M PRN PO DECREASED GLUCOSE; Start 01/02/17 at 10: 00 Dextrose (D50w Syringe) 25 ml Q15M PRN IV DECREASED GLUCOSE; Start 01/02/17 at 10:00 Dextrose (D50w Syringe) 50 ml Q15M PRN IV DECREASED GLUCOSE; Start 01/02/17 at 10:00 Glucagon (Glucagen) 1 mg Q15M PRN IM DECREASED GLUCOSE; Start 01/02/17 at 10:00 Glucose 15 gm 15 gm Q15M PRN BUCCAL DECREASED GLUCOSE; Start 01/02/17 at 10:00 Sodium Chloride (NS) 1,000 ml @ 0 mls/hr Q0M PRN IV TO KEEP SBP ABOVE 90; Start 01/02/17 at 18:21 Amlodipine Besylate (Norvasc) 10 mg DAILY PO Last administered on 01/04/17t 09: 30; Admin Dose 10 MG; Start 01/04/17 at 09:00 Calcium Acetate (Phoslo) 667 mg TID PO Last administered on 01/04/17 12:51; Admin Dose 667 MG; Start 01/03/17 at 21:00 Citalopram Hydrobromide (Celexa) 20 mg DAILY PO Last administered on 01/04/17 09:29; Admin Dose 20 MG; Start 01/04/17 at 09:00 Losartan Potassium (Cozaar) 25 mg BID PO Last administered on 01/04/17 09:30; Admin Dose 25 MG; Start 01/03/17 at 21:00 Metoprolol Succinate (Toprol Xl) 50 mg BID PO Last administered on 01/04/17 09 :29; Admin Dose 50 MG; Start 01/03/17 at 21:00 Multivit/Ca Carb/ B Cmplx/FA/Prenat (Germania-Filomena) 1 tab DAILY PO Last administered on 01/04/17 09:29; Admin Dose 1 TAB; Start 01/04/17 at 09:00 Atorvastatin Calcium (Lipitor) 40 mg HS PO Last administered on 01/03/17 20:57 ; Admin Dose 40 MG; Start 01/03/17 at 21:00 Linagliptin (Tradjenta) 5 mg DAILY PO Last administered on 01/04/17 09:29; Admin Dose 5 MG; Start 01/04/17 at 09:00 Diagnostic Test (Pha) (Accu-Chek) 1 ea 02 XX ; Start 01/04/17 at 02:00 Ranitidine HCl (Zantac) 150 mg DAILY PO ; Start 01/05/17 at 09:00 ANALY EVANS MD Jan 04, 2017 16:57
--- NOTE | 2017-01-04 21:13 | DS ---
Date/Time of Note Date/Time of Note DATE: 01/04/17 TIME: 21:07 Discharge Summary Admission/Discharge Info Admit Date/Time Jan 02, 2017 at 06:09 Discharge Date/Time Jan 04, 2017 at 19:01 Final Diagnosis Acute pancreatitis Patient Condition: Fair Consults [place]: nephrology Hx of Present Illness 76 y/o H M w/ multiple medical problems including T2DM, w/ diabetic nephropathy , neuropathy, retinopathy, HTN, hyperlipidemia, ESRD, PVD, w/ B BKA, BPH, depression, an episode of ischemic bowel, s/p PNA 4 months ago, in [facility] until yesterday when he ate 2 tostadas. Subsequently became ill. He developed diarrhea. This was followed by 2 episodes of emesis which was accompanied by mid-abd. pain and acute anorexia. brought pt. to ER. In ER pt. found to have lipase of 2,412. Of note pt. denies any alcohol intake and has had cholecystectomy in distant past. Hospital Course Pt. placed on GI rest. Rapidly asymptomatic. Repeat lipase and amylase were normal. Initiated feeds and pt. tolerated well without recurrence of symptoms. Pt. had single course of hemodialysis. Tolerated well and was discharged home. Home Meds Active Scripts Metoprolol Succinate* (Toprol XL*) 50 Mg Tab.er.24h, 50 MG PO BID for 30 Days, # 60 5 Refills Prov:RADHA DORADO MD 09/15/16 Repaglinide* (Prandin*) 2 Mg Tablet, 2 MG PO AC MEALS for 30 Days, #90 TAB 5 Refills Prov:RADHA DORADO MD 09/15/16 Reported Medications Losartan Potassium* (Losartan Potassium*) 25 Mg Tablet, 25 MG PO BID, TAB 03/06/16 Calcium Acetate (Phoslo) 667 Mg Capsule, 667 MG PO TID, 0 Refills 08/07/10 Multivit/Ca Carb/B Cmplx/Fa* (Germania-Filomena*) 1 Tab Tab, 1 TAB PO DAILY, 0 Refills 08/07/10 Amlodipine Besylate* (Norvasc*) 10 Mg Tablet, 10 MG PO DAILY, 0 Refills 08/07/10 Simvastatin (Simvastatin) 40 Mg Tablet, 40 MG PO HS, 0 Refills 08/07/10 Citalopram Hydrobromide* (Celexa*) 20 Mg Tablet, 20 MG PO DAILY, 0 Refills 08/07/10 Ranitidine Hcl (Ranitidine Hcl) 150 Mg Capsule, 150 MG PO BID, 0 Refills 08/07/10 Sitagliptin* (Januvia*) 50 Mg Tablet, 25 MG PO DAILY, 0 Refills 04/06/10 Follow-up Plan f/u w/ nephrology as scheduled. f/u w/ Dr. Dorado in 3 months Pending Labs Laboratory Tests Test 01/04/17 05:00 01/04/17 09:13 01/04/17 12:42 01/04/17 18:10 White Blood Count 7.410^3/ul (4.8-10.8) Red Blood Count 3.0310^6/ul (4.70-6.10) Hemoglobin 9.4g/dl (14.0-18.0) Hematocrit 28.7% (42.0-52.0) Mean Corpuscular Volume 94.7fl (82.0-101.0) Mean Corpuscular Hemoglobin 31.0pg (29.0-33.0) Mean Corpuscular Hemoglobin Concent 32.8g/dl (32.0-37.0) Red Cell Distribution Width 16.1% (11.5-14.5) Platelet Count 30953^3/UL (140-415) Mean Platelet Volume 11.0fl (7.4-10.4) Neutrophils % 67.5% (39.0-77.0) Lymphocytes % 18.4% (15.0-51.0) Monocytes % 13.1% (0.0-11.0) Eosinophils % 0.3% (0.0-7.0) Basophils % 0.3% (0.0-2.0) Nucleated Red Blood Cells % 0.0/100WBC (0.0-0.0) Neutrophils # 5.010^3/ul (1.6-7.5) Lymphocytes # 1.410^3/ul (0.8-2.9) Monocytes # 1.010^3/ul (0.3-0.9) Eosinophils # 0.010^3/ul (0.0-0.5) Basophils # 0.010^3/ul (0.0-0.1) Nucleated Red Blood Cells # 0.010^3/ul (0.0-0.0) Sodium Level 144mmol/L (135-144) Potassium Level 3.4mmol/L (3.5-5.1) Chloride Level 105mmol/L (97-110) Carbon Dioxide Level 21mmol/L (21-31) Anion Gap 21 (8-16) Blood Urea Nitrogen 52mg/dl (7-20) Creatinine 8.77mg/dl (0.61-1.24) Glucose Level 137mg/dl (70-220) Calcium Level 9.4mg/dl (8.4-10.2) Total Bilirubin 0.0mg/dl (0.2-1.3) Direct Bilirubin 0.00mg/dl (0.00-0.20) Indirect Bilirubin 0.0mg/dl (0-1.1) Aspartate Amino Transf (AST/SGOT) 35IU/L (15-46) Alanine Aminotransferase (ALT/SGPT) 31IU/L (13-69) Alkaline Phosphatase 81IU/L (42-121) Total Protein 6.7g/dl (6.1-8.1) Albumin 3.4g/dl (3.3-4.9) Globulin 3.30g/dl (1.3-3.2) Albumin/Globulin Ratio 1.03 Amylase Level 111U/L (11-123) Lipase 141U/L (23-300) Bedside Glucose 181mg/dL (70-220) 99mg/dL (70-220) 74mg/dL (70-220) RADHA DORADO MD Jan 04, 2017 21:13
[2017-01-05] MEDS ORDERED: RANITIDINE 150 MG TAB PO SCH (09:00)
== END 2017-01-04 19:01 | disposition home or self-care (01) | DRG 438 ==
LOC: E/R 04:03 → MS4 06:09 → PP2 01-04 04:30
PROVIDERS: ADMIT Internal Medicine; ATTEND Internal Medicine
PROC: 5A1D00Z (ICD-10-PCS; principal; 2017-01-02)
DX: K85.90 Acute pancreatitis without necrosis or infection, unspecified (principal); N18.6 End stage renal disease; I12.0 Hypertensive chronic kidney disease with stage 5 chronic kidney disease or end stage renal disease; E11.21 Type 2 diabetes mellitus with diabetic nephropathy; E11.22 Type 2 diabetes mellitus with diabetic chronic kidney disease; Z99.2 Dependence on renal dialysis; F33.42 Major depressive disorder, recurrent, in full remission; E87.5 Hyperkalemia; N40.0 Benign prostatic hyperplasia without lower urinary tract symptoms; F32.9 Major depressive disorder, single episode, unspecified; E78.5 Hyperlipidemia, unspecified; Z89.512 Acquired absence of left leg below knee; Z89.511 Acquired absence of right leg below knee
CPT/HCPCS: 36415; 71010; 74177; 80053; 80061; 82150; 82962; 83036; 83605; 83690; 83735; 84100; 84484; 85025; 90935; 93005; 96372; 96374; 96375; J0610; J1644; J1815; J2405; Q9967

== ENCOUNTER 2017-04-04 11:35 | Emergency (ER) | payer MEDICARE, BC ==
[~2017-04-04] VITALS: Wt 77.3 kg
[~2017-04-04 11:35] MED LIST changes: +SIMV40TA3 PO; -SMV40T PO
[2017-04-04 11:38] VITALS: Wt 77.3 kg
[2017-04-04] MEDS ORDERED: HYDROmorphONE 1 MG/ML SYG IV STA ×2 (12:06→15:15)
[2017-04-04] MEDS ORDERED: ONDANSETRON 4 MG INJ IV STA ×2 (12:06→15:15)
[2017-04-04 12:35] LABS: ADD SCAN DIFF NO
[2017-04-04 12:42] LABS: BASOPHIL # 0.1 10^3/ul (0.0-0.1); BASOPHILS % 0.5 % (0.0-2.0); EOSINOPHILS # 0.1 10^3/ul (0.0-0.5); EOSINOPHILS % 1.2 % (0.0-7.0); HEMATOCRIT 33.9 % (42.0-52.0); HEMOGLOBIN 11.5 g/dl (14.0-18.0); LYMPHOCYTES # 1.7 10^3/ul (0.8-2.9); LYMPHOCYTES % 15.6 % (15.0-51.0); MEAN CORPUSCULAR HEMOGLOBIN 31.6 pg (29.0-33.0); MEAN CORPUSCULAR HGB CONC 33.9 g/dl (32.0-37.0); MEAN CORPUSCULAR VOLUME 93.1 fl (82.0-101.0); MEAN PLATELET VOLUME 10.6 fl (7.4-10.4); MONOCYTE # 0.8 10^3/ul (0.3-0.9); NEUTROPHIL # 8.3 10^3/ul (1.6-7.5); PLATELET COUNT 146 10^3/UL (140-415); RED BLOOD COUNT 3.64 10^6/ul (4.70-6.10); RED CELL DISTRIBUTION WIDTH 13.1 % (11.5-14.5)
[2017-04-04] MEDS ORDERED: SOD CHLORIDE 0.9% 100 ML ONE (12:58)
[2017-04-04] MEDS ORDERED: IODIXANOL LOCM 100 ML BTL ONE (12:58)
[2017-04-04 12:59] LABS: ALBUMIN/GLOBULIN RATIO 1.08; CALCIUM 9.6 mg/dl (8.4-10.2); CREATININE 10.37 mg/dl (0.61-1.24); POTASSIUM 4.6 mmol/L (3.5-5.1); TOTAL PROTEIN 7.7 g/dl (6.1-8.1)
[2017-04-04] MEDS ORDERED: HYDR-902 PO (15:08)
--- NOTE | 2017-04-04 15:15 | ERD ---
ER Documentation Chief Complaint Date/Time DATE: 04/04/17 TIME: 15:12 Chief Complaint Bilateral abdominal pain HPI This is 76-year-old male is complaining of bilateral mid abdominal pain. The pain is described as sharp and is located at the mid abdominal region on both sides of the abdomen. He says this started about 4 days ago. He says the pain is steadily getting worse. He says he is nauseated but no vomiting. Says he has no diarrhea or constipation. No chest pain or shortness of breath. Patient scheduled for dialysis today but did not go. Says he is having frequent belching ROS All systems reviewed and are negative except as per history of present illness. Medications Home Meds Active Scripts Hydrocodone/Acetaminophen (Brandon 10-325 Tablet) 1 Each Tablet, 1 TAB PO Q6H Y for PAIN, #20 TAB Prov:LUIS MARTINEZ DO 04/04/17 Metoprolol Succinate* (Toprol XL*) 50 Mg Tab.er.24h, 50 MG PO BID for 30 Days, # 60 5 Refills Prov:RADHA BAKER MD 09/15/16 Repaglinide* (Prandin*) 2 Mg Tablet, 2 MG PO AC MEALS for 30 Days, #90 TAB 5 Refills Prov:RADHA BAKER MD 09/15/16 Reported Medications Losartan Potassium* (Losartan Potassium*) 25 Mg Tablet, 25 MG PO BID, TAB 03/06/16 Calcium Acetate (Phoslo) 667 Mg Capsule, 667 MG PO TID, 0 Refills 08/07/10 Multivit/Ca Carb/B Cmplx/Fa* (Germania-Filomena*) 1 Tab Tab, 1 TAB PO DAILY, 0 Refills 08/07/10 Amlodipine Besylate* (Norvasc*) 10 Mg Tablet, 10 MG PO DAILY, 0 Refills 08/07/10 Simvastatin (Simvastatin) 40 Mg Tablet, 40 MG PO HS, 0 Refills 08/07/10 Citalopram Hydrobromide* (Celexa*) 20 Mg Tablet, 20 MG PO DAILY, 0 Refills 08/07/10 Ranitidine Hcl (Ranitidine Hcl) 150 Mg Capsule, 150 MG PO BID, 0 Refills 08/07/10 Sitagliptin* (Januvia*) 50 Mg Tablet, 25 MG PO DAILY, 0 Refills 04/06/10 Allergies Allergies: Coded Allergies: No Known Drug Allergy (Verified Allergy, Unknown, 03/06/16) PMhx/Soc History of Surgery: Yes (BILATER BKA) Anesthesia Reaction: No Hx Neurological Disorder: No Hx Respiratory Disorders: No Hx Cardiac Disorders: Yes (HTN, SC AUG 04) Hx Psychiatric Problems: No Hx Miscellaneous Medical Probl: Yes (DM) Hx Alcohol Use: No Hx Substance Use: No Hx Tobacco Use: No Smoking Status: Never smoker FmHx Family History: No coronary disease Physical Exam Vitals Vital Signs Date Time Temp Pulse Resp B/P Pulse Ox O2 Delivery O2 Flow Rate FiO2 04/04/17 11:38 97.3 74 20 210/98 95 Physical Exam Const: Well-developed, well-nourished Head: Atraumatic, normocephalic Eyes: Normal Conjunctiva, PERRLA, EOMI, normal sclera, no nystagmus ENT: Normal External Ears, Nose and Mouth, moist mucus membranes. Neck: Full range of motion. No meningismus, no lymphadenopathy. Resp: Clear to auscultation bilaterally, no wheezing, rhonchi, rales Cardio: Regular rate and rhythm, no murmurs, S1 S2 present Abd: Soft, tenderness to the midabdomen on the right and left side of the abdomen that is moderate in nature, some guarding, non distended. Normal bowel sounds, no rebound, no pulsitile abdominal masses or bruits Skin: No petechiae or rashes, no ecchymosis , no maculopapular rash Back: No midline or flank tenderness Ext: No cyanosis, or edema, FROM x 4, normal inspection, neurovascularly intact x 4 Neur: Awake and alert, STR 5/5 x 4, sensation intact x 4, no focal findings, cerebellum intact Psych: Normal Mood and Affect Result Diagram: 04/04/17 1230 04/04/17 1230 Results 24 hrs Laboratory Tests Test 04/04/17 12:30 White Blood Count 11.010^3/ul Red Blood Count 3.6410^6/ul Hemoglobin 11.5g/dl Hematocrit 33.9% Mean Corpuscular Volume 93.1fl Mean Corpuscular Hemoglobin 31.6pg Mean Corpuscular Hemoglobin Concent 33.9g/dl Red Cell Distribution Width 13.1% Platelet Count 85562^3/UL Mean Platelet Volume 10.6fl Neutrophils % 75.0% Lymphocytes % 15.6% Monocytes % 7.0% Eosinophils % 1.2% Basophils % 0.5% Nucleated Red Blood Cells % 0.0/100WBC Neutrophils # 8.310^3/ul Lymphocytes # 1.710^3/ul Monocytes # 0.810^3/ul Eosinophils # 0.110^3/ul Basophils # 0.110^3/ul Nucleated Red Blood Cells # 0.010^3/ul Sodium Level 141mmol/L Potassium Level 4.6mmol/L Chloride Level 100mmol/L Carbon Dioxide Level 21mmol/L Anion Gap 25 Blood Urea Nitrogen 66mg/dl Creatinine 10.37mg/dl Glucose Level 233mg/dl Calcium Level 9.6mg/dl Total Bilirubin 0.0mg/dl Direct Bilirubin 0.00mg/dl Indirect Bilirubin 0.0mg/dl Aspartate Amino Transf (AST/SGOT) 22IU/L Alanine Aminotransferase (ALT/SGPT) 27IU/L Alkaline Phosphatase 101IU/L Total Protein 7.7g/dl Albumin 4.0g/dl Globulin 3.70g/dl Albumin/Globulin Ratio 1.08 Lipase 305U/L Current Medications Medications (Trade) Dose Ordered Sig/Rachel Route PRN Reason Start Time Stop Time Status Last Admin Dose Admin Hydromorphone HCl (Dilaudid) 1 mg ONCE STAT IV 04/04/17 12:06 04/04/17 12:07 DC 04/04/17 12:28 Ondansetron HCl 4 mg 4 mg ONCE STAT IV 04/04/17 12:06 04/04/17 12:07 DC 04/04/17 12:27 Sodium Chloride (NS) 100 ml @ STK-MED ONCE .ROUTE 04/04/17 12:58 04/04/17 12:59 DC 04/04/17 13:19 Iodixanol (Visipaque Locm) 100 ml STK-MED ONCE .ROUTE 04/04/17 12:58 04/04/17 12:59 DC 04/04/17 13:19 Hydromorphone HCl (Dilaudid) 1 mg ONCE STAT IV 04/04/17 15:15 04/04/17 15:16 DC Ondansetron HCl (Zofran Inj) 4 mg ONCE STAT IV 04/04/17 15:15 04/04/17 15:16 DC Procedures/MDM Patient's labs are relatively unremarkable. Potassium is normal at 4.6. Does not need emergent hemodialysis today. CT scan abdomen is currently pending Departure Diagnosis: Primary Impression: Abdominal pain Abdominal location: unspecified location Qualified Code: R10.9 - Abdominal pain, unspecified location Additional Impression: End stage kidney disease Condition: Stable Patient Instructions: Abdominal Pain Referrals: RADHA BAKER MD (PCP) LUIS MARTINEZ DO Apr 04, 2017 15:15
--- NOTE | 2017-04-04 15:59 | RADRPT ---
PROCEDURE: CT scan of the abdomen and pelvis with IV contrast. CLINICAL INDICATION: 76 real male with abdominal pain. TECHNIQUE: Thin section axial, coronal and sagittal images were performed through the abdomen and pelvis following uncomplicated intravenous administration of 100 ccs of Visipaque 320 contrast. Imag es were performed using a [employer] V[employer] CT scanner. Radiation Dose: CTDI: 10.6 an d DLP: 693 One or more of the following dose reduction techniques were used: - Automated exposure control. - Adjustment of the mA and/or kV according to patient size. Use of iterative reconstruction technique. COMPARISON: CT scan abdomen pelvis 01/02/2017. FINDINGS: Soft tissues: There is a small left inguinal hernia containing fat. Lungs and pleural spaces: There is stable areas of ground-glass infiltrate in the interstitial scarr ing in the bases of the lungs. There is peribronchial thickening of the bronchial pozo leading to the bases of the lungs. No pleural effusion is identified. There are calcifications along the pleur al surface in the area of the right costophrenic angle. Heart: Heart is enlarged. There are vascular calcifications in the coronary arteries. No pericardia l effusion is identified. A small pericardial effusion is noted. This is unchanged. The liver, common bile duct and gallbladder: There is mild intrahepatic biliary ductal dilatation wh ich is unchanged. The gallbladder surgically removed. The extrahepatic common bile duct is also di lated measuring 1.4 cm. The hepatic and portal veins are patent. Gastrointestinal: There is no evidence of a hiatal hernia. Particulate matter, air and fluid are no almas in the stomach. The small bowel loops have a normal caliber. Some of the small bowel loops exh ibit mucosal thickening up to 5.1 mm. This finding is unchanged and likely reflects incomplete dist ension. There is fluid in the small bowel loops and in the colon. There is no evidence of divertic ulosis or diverticulitis. There is a small left inguinal hernia which contains fat. Pancreas: Pancreas is small. No pancreatic mass is identified. The main pancreatic duct is normal in size. Kidneys, bladder and adrenal glands : The adrenal glands are normal. There are multiple small cysts in both kidneys. The kidneys are small and smoothly marginated. There are vascular calcifications in the right and left renal arteries and nerve branches. No obstructing or nonobstructive nephroli th or ureterolith is identified. There is symmetric thickening of the wall of the urinary bladder. This may be the result of urinary bladder outlet obstruction. Spleen: The spleen is unremarkable measuring 11.7 cm in length. Lymph nodes: No enlarged periportal, mesenteric or retroperitoneal lymph nodes are identified. No e nlarged pelvic sidewall or inguinal lymph nodes are identified. There are clips in the left inguina l canal and right inguinal canal from earlier surgery. Reproductive system and pelvis : The prostate gland is enlarged measuring 4 cm AP by 4.7 x 4.2 cm. The seminal vesicles are normal. No free fluid is noted in the pelvis. Bony elements: There are degenerative osteophytes in the thoracic and lumbar spine. There are degen erative changes in both hips. No acute bony fracture or bone metastasis is identified. Vasculature: There are extensive vascular calcifications involving the lower thoracic aorta, abdomin al aorta, celiac axis, renal arteries, superior and inferior mesenteric arteries, common iliac arter ies, internal and external and common femoral arteries. There are clips in the right left inguinal canals from prior vascular surgery. IMPRESSION: 1. Cardiomegaly with atherosclerotic vascular calcifications in the coronary arteries and a small p ericardial effusion. 2. Chronic medical renal disease with extensive atherosclerotic vascular calcifications involving t he renal arteries and small bilateral renal cysts. 3. Small hiatal hernia. Small left inguinal hernia containing fat. 4. Enlarged prostate gland measuring 4.7 x 4.0 x 4.0 cm. Associated mild thickening of the urinary bladder wall may reflect outlet obstruction or cystitis. Clinical correlation is needed. 5. 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 6. Atherosclerotic vascular disease. RPTAT:QQ .Christian Jefferson MD, MD Date Time Electronically viewed and signed by .Christian Jefferson MD, on 04/04/2017 15:59 .R/
[2017-04-04] MEDS ORDERED: AMLO5TAB4 PO (17:06)
[2017-04-04] MEDS ORDERED: ZOLP10TA5 PO (17:07)
[2017-04-04] MEDS ORDERED: CARV6.2579 PO (17:07)
[2017-04-04 17:08] LABS: URINE BLOOD (Dip) POC Trace-lysed (NEGATIVE)
[2017-04-04] MEDS ORDERED: LOSA100T7 PO (17:08)
[2017-04-04 17:09] LABS: URINE BLOOD (Dip) POC Trace-lysed (NEGATIVE)
[2017-04-04] MEDS ORDERED: CALC667C PO (17:10)
[2017-04-04] MEDS ORDERED: VADADUSTAT PO ×2 (17:12→17:13)
[2017-04-04] MEDS ORDERED: morphine 4 MG/ML VIAL IV STA (17:16)
[2017-04-04 17:59] VITALS: TEMP 99.1
[2017-04-04 18:30] VITALS: BP 198/98; PULSE 88; RESP 16
== END 2017-04-04 18:30 | disposition home or self-care (01) ==
LOC: E/R 11:35
DX: R10.9 Unspecified abdominal pain (principal); I12.0 Hypertensive chronic kidney disease with stage 5 chronic kidney disease or end stage renal disease; N18.6 End stage renal disease; R11.0 Nausea; E11.9 Type 2 diabetes mellitus without complications; Z79.84 Long term (current) use of oral hypoglycemic drugs
CPT/HCPCS: 74177; 80053; 81003; 83690; 85025; A4310; J1170; J2270; J2405; Q9967; 36415; 96374; 96375; 96376; P9612

== ENCOUNTER 2018-01-12 17:02 | Emergency (ER) | END 2018-01-13 01:49 | disposition home or self-care (01) ==

== ENCOUNTER 2018-05-09 19:42 | Emergency (ER) | END 2018-05-09 22:06 | disposition left against medical advice (07) ==

== ENCOUNTER 2018-06-21 12:21 | Emergency (ER) | END 2018-06-21 16:33 | disposition home or self-care (01) ==